=== PATIENT | female | born 1985 | race African-American/Black ===

== ENCOUNTER 2017-02-22 23:00 | Inpatient (IN) | payer OTHER ==
--- NOTE | ~2017-02-22 | DS ---
Unit #: [id number] #: [id number] Patient: DENNIS TEJADA [id number] [facility] [address] [place] [address] [id number] MR#: [id number] NAME: DENNIS TEJADA ROOM: [facility] Age: 32 Sex: F Admission Date: 02/23/2017 : 1985 Discharge Date: 02/24/2017 Attending Physician: Dylan Herrera M.D. Primary Care Physician: Primary Care Physician No DISCHARGE SUMMARY IDENTIFYING DATA Ms. Tejada is a 31-year-old female, who was brought to the hospital for depressive symptoms. DISCHARGE DIAGNOSES Psychiatric: Major depressive disorder, recurrent, moderate, without psychotic features. Medical: None. Stressors: Moderate psychosocial stressors. HISTORY OF PRESENT ILLNESS Please see initial psychiatric evaluation for details. PAST PSYCHIATRIC HISTORY Please see initial psychiatric evaluation for details. PAST MEDICAL HISTORY Please see initial psychiatric evaluation for details. HOSPITAL COURSE The patient was admitted to the adult psychiatric unit at [facility] meek Azul and was oriented to the hospital environment. Routine p.r.n. medications were initiated, and she was started back on her home medications and medications were adjusted and she was closely monitored. However, she ended up in the emergency room at [facility], where she was hospitalized and therefore was discharged from our care. DISCHARGE CONDITION Stable. PROGNOSIS Fair. Dictated by... Alice Kc/lizzy TD: 03/30/2017 13:51 JOB #: [id number] Unit #: [id number] #: [id number] Patient: DENNIS TEJADA DISCHARGE SUMMARY Page 1 of 1 X Dylan Herrera MD X DISCHARGE SUMMARY
--- NOTE | ~2017-02-22 | HP ---
Unit #: [id number] #: [id number] Patient: DENNIS MARTINEZ [id number] [place] [address] [id number] MR#: [id number] NAME: DENNIS MARTINEZ ROOM: P251 Age: 31 Sex: F Admission Date: 02/23/2017 : 1985 Attending Physician: Dylan Herrera M.D. Admitting Physician: Dylan Herrera M.D. Primary Care Physician: Primary Care Physician No HISTORY AND PHYSICAL HISTORY OF PRESENT ILLNESS Dennis is a 31 year old female admitted to [address] [place] [address] with depression verbalizing wanting to hurt herself. PAST MEDICAL HISTORY 1. Diabetes mellitus, insulin dependent. 2. Gastroparesis. 3. History of recurrent DVTs with PEs. PAST SURGICAL HISTORY Nothing reported. ALLERGIES Demerol, Reglan. SOCIAL HISTORY Smokes one-half pack per day. Denies alcohol and illicit drug use. FAMILY HISTORY Medically noncontributory. REVIEW OF SYSTEMS CONSTITUTIONAL: No fever or chills. HEENT: Denies any sore throat, ear pain or runny nose. CARDIOVASCULAR: Denies chest pain, irregular heart rhythm or palpitations. CHEST: Denies shortness of breath or cough. No hemoptysis. GASTROINTESTINAL: Denies nausea, vomiting, diarrhea or chronic constipation. ENDOCRINE: Denies history of increased thirst or urination. No recent significant weight loss or gain. GENITOURINARY: Denies dysuria, frequency, or hematuria. SKIN: Denies any rashes. HEMATOLOGIC: Denies history of increased bleeding or bruising. MUSCULOSKELETAL: Denies any hot, swollen joints. No generalized muscle pain. NEUROLOGIC: Denies problems with vision or speech. No frequent, severe headaches. No numbness, tingling or weakness in any extremities. Denies loss of bladder or bowel control. CURRENT MEDICATIONS 1. Detox protocol. 2. Eliquis 5 mg b.i.d. 3. Levemir 7 units b.i.d. Unit #: [id number] #: [id number] Patient: DENNIS MARTINEZ 4. Amitiza 24 mcg t.i.d. 5. NovoLog per sliding scale. PHYSICAL EXAMINATION GENERAL: Alert, well nourished. No apparent distress. VITAL SIGNS: Blood pressure 140/82, heart rate 80, respirations 16, and temperature 98.6. WEIGHT: 92 pounds. HEIGHT: 5 feet 2 inches. SKIN: Warm and dry without rash or lesion. HEENT: Normocephalic. TMs not viewed. Oral and nasal passages clear. Conjunctivae clear. PERRLA. EOMs intact. NECK: Supple without lymphadenopathy or thyromegaly. HEART: Regular rate and rhythm without murmur. LUNGS: Clear. ABDOMEN: Soft, nontender. : Not done. EXTREMITIES: No evidence of cyanosis, clubbing or edema. Moves all without focal deficit. NEUROLOGICAL: Unable to complete extended exam. She does move all extremities without focal deficit. Hand metallurgical lab technician is equal and gait is normal. IMPRESSION Psychiatric admission. RECOMMENDATIONS PSYCHIATRIC: Per psychiatrist. MEDICAL: I see no contraindications to participate in this facility's activities. MEDICAL PROGNOSIS Good. MEDICAL CONDITION Stable. Dictated by... Evita Burt P.A.-C. for Alice Reed/frantz TD: 02/24/2017 07:57 JOB #: [id number] HISTORY AND PHYSICAL Page 1 of 1 X Evita Burt HISTORY AND PHYSICAL
--- NOTE | ~2017-02-22 | PA ---
Unit #: [id number] #: [id number] Patient: DENNIS MARTINEZ [id number] [facility] [address] [place] [address] [id number] I MR#: [id number] NAME: DENNIS MARTINEZ ROOM: P251 Age: 31 Sex: F Admission Date: 02/23/2017 : 1985 Date of Assessment: 02/24/2017 Attending Physician: Dylan Herrera M.D. Admitting Physician: Dylan Herrera M.D. Primary Care Physician: Primary Care Physician No PSYCHIATRIC ASSESSMENT IDENTIFYING DATA The patient is a 31-year-old single, -Brazilian female, who is a resident of [place], [place], and was transferred to us from [facility]. CHIEF COMPLAINT "I tried to harm myself tonight, by running into traffic." HISTORY OF PRESENT ILLNESS The patient is a 31-year-old, -Brazilian female, who apparently came to [facility] due to vomiting and feeling nauseated and sweating and not getting any relief and reports she has gastroparesis and has been coming to the hospital repeatedly, however, has not been able to find relief and therefore she stated that she feels like this is not working out and that she tried to harm herself tonight by running into the oncoming traffic. So, she could get hit by the hospital security staff. The patient reports that she is tired and she cannot deal with it anymore and reports that she has never been treated this badly and feels like she is totally being ignored, due to try to kill herself and reports that she attempted suicide by trying to hang herself the last time she was at the emergency room, but her nurse stopped and reports that she is totally being ignored and that she has never been treated this badly. The nurse and staff reports that the patient has been to the ER three times this year for gastroparesis. While in the waiting room, the patient complaining of abdominal pain and stated that she was going to run into traffic if she is not going to get seen and security prevented patient from running into the street and stated that it has been difficult to get the patient any surgery to her wounds collapsing and is caused by uncontrollable diabetes along with the patient's gastroparesis. The patient told the nurse that the gastroparesis cannot be cured. She does not want to live and as such, she was seen to be significant threat to herself and recommendation for inpatient level of care for safety and stabilization was made and the patient was transferred to us. SUBSTANCE ABUSE HISTORY The patient reports history of experimentation with cannabis and abuse, but denies any current substance abuse issues. PAST PSYCHIATRIC HISTORY The patient has a history of outpatient psychiatric treatment at [facility] and review of the medical records indicate that she has been diagnosed and treated for mood disorder and currently she is not active in Unit #: [id number] #: [id number] Patient: DENNIS MARTINEZ any treatment program, is not seeing a psychiatrist, and is not taking any psychotropic medications. PAST MEDICAL HISTORY The patient's medical history is significant for diabetes mellitus and gastroparesis. ALLERGIES Demerol and Reglan. PERSONAL AND SOCIAL HISTORY A 31-year-old, -Brazilian female, who reports that she is single, unemployed, and lives by herself and has poor social support system. MENTAL STATUS EXAMINATION Young, -Brazilian female, who was casually dressed with fair personal hygiene, appears to be in no acute distress or discomfort. She was awake and alert on interaction with intact orientation to time, place, and person. Her mood was anxious and depressed with a congruent affect. His speech was slow and restricted in content. Her thought processes were disorganized with some looseness of associations and suicidal ideations. Her insight and judgment remain significantly impaired. DIAGNOSTIC IMPRESSION Psychiatric: Major depressive disorder, recurrent, moderate, without psychotic features. Medical: Gastroparesis and diabetes mellitus. Stressors: Moderate psychosocial stressors. TREATMENT PLAN 1. The patient has presented with a history of substance abuse and mood disorder, and has been decompensating and will need inpatient hospitalization for safety and stabilization. We will start her back on her home medications. We will adjust the medications and monitor response. 2. Supportive therapy was provided to the patient. 3. Safe, structured, and nourishing environment will be reported. ESTIMATED LENGTH OF STAY 4 to 5 days. ABILITY TO HELP SELF Limited. WILLINGNESS TO HELP SELF The patient appears to be willing to help self. STRENGTHS 1. Communicative. 2. Cooperative. PROBLEMS 1. Chronic dysphoric symptoms. 2. Poor social support system. DISCHARGE CRITERIA This will be contingent upon the patient's ability to show resolution of her depression and anxiety and her ability to stay safe to herself, particularly after discharge from the hospital. Unit #: [id number] #: [id number] Patient: DENNIS MARTINEZ Dictated by... Alice Kc/monicol TD: 02/24/2017 12:50 JOB #: [id number] PSYCHIATRIC ASSESSMENT Page 1 of 1 X Dylan Herrera MD X PSYCHIATRIC ASSESSMENT
--- NOTE | ~2017-02-22 | PN ---
Unit #: [id number] #: [id number] Patient: DENNIS TEJADA [id number] [facility] [address] [place] [address] [id number] I MR#: [id number] NAME: DENNIS TEJADA ROOM: P251 Age: 31 Sex: F Admission Date: 02/23/2017 : 1985 Attending Physician: Dylan Herrera M.D. Admitting Physician: Dylan Herrera M.D. Primary Care Physician: Primary Care Physician Baylee NUNO NOTES DATE 02/24/2017 DISCUSSION Ms. Tejada is a 31-year-old female who has been active under my care and apparently is having significant complications medically and was seen in consultation and due to her elevate blood sugars and history of diabetes dehydration, recommendation was made for the patient to be sent out to emergency room for medical clearance and was cleared and resume psychiatric treatment. Dictated by... Alice Kc/freddy TD: 02/25/2017 02:27 JOB #: [id number] YOLANDA NUNO NOTES Page 1 of 1 X Dylan Herrera MD PROGRESS NOTE
[2017-02-24] MEDS ORDERED: AMITIZA24 MCG PO (05:53)
[2017-02-24] MEDS ORDERED: ELIQUIS5 MG PO (05:53)
[2017-02-24] MEDS ORDERED: LEVEMIR SUBQ (05:54)
[2017-02-24] MEDS ORDERED: ZOFRAN ODT4 M1 PO (05:54)
[2017-02-24] MEDS ORDERED: HUMALOG100 UNIT/2 (05:54)
[2017-02-24] MEDS ORDERED: PHENERGAN PO (05:55)
[2017-02-24 09:42] LABS: URINE APPEARANCE CLEAR; URINE BILIRUBIN NEG (NEG); URINE BLOOD 1+ (NEG); URINE COLOR YELLOW; URINE GLUCOSE >1000 MG/DL (NEG); URINE KETONE 3+ (NEG); URINE LEUKOCYTE ESTERASE NEG (NEG); URINE NITRATE NEG (NEG); URINE PH 5.5 (5-8); URINE PROTEIN 2+ (NEG); URINE SPECIFIC GRAVITY 1.038 (1.003-1.035); URINE UROBILINOGEN 0.2 MG/DL (NEG)
[2017-02-24 09:45] LABS: URINE BACTERIA AUWI NEG (NEGATIVE); URINE SQUAMOUS EPITHELIAL CELL NONE SEEN /[HPF]; UWBCS1 AUWI 0-2 (0-5)
[2017-02-24 10:25] LABS: AMPHETAMINE NEG (NEG); BARBITURATES NEG (NEG); BENZODIAZEPINES NEG (NEG); COCAINE NEG (NEG); MARIJUANA POS (NEG); OPIATES NEG (NEG); TRICYCLIC ANTIDEPRESSANTS NEG (NEG); U METHADONE NEG (NEG)
== END 2017-02-24 09:50 | DRG 885 ==
LOC: P2L 02-23 05:53
PROVIDERS: Psychiatry & Neurology Psychiatry
DX: F33.1 Major depressive disorder, recurrent, moderate (principal); K31.84 Gastroparesis; E11.9 Type 2 diabetes mellitus without complications; F17.210 Nicotine dependence, cigarettes, uncomplicated
CPT/HCPCS: 80307; 81003; 82947; J2550

== ENCOUNTER 2017-02-24 05:37 | Inpatient (IN) | payer OTHER ==
--- NOTE | ~2017-02-24 | EKG ---
PATIENT: DENNIS MARTINEZ UNIT #: [id number] Ventricular Rate: 110 BPM Atrial Rate: 110 BPM P-R Interval: 124 ms QRS Duration: 82 ms Q-T Interval: 382 ms QTC Calculation(Bezet): 516 ms P Mercedita: 82 degrees Calculated R Mercedita: -48 degrees Calculated T Mercedita: 89 degrees Diagnosis Line: Sinus tachycardia Diagnosis Line: Right atrial enlargement Diagnosis Line: Left anterior fascicular block Diagnosis Line: Nonspecific T wave abnormality Diagnosis Line: Abnormal ECG Diagnosis Line: No previous ECGs available Diagnosis Line: Confirmed by VICTOR HUGO NIX MD ([id number]) on Diagnosis Line: 02/25/2017 7:21:44 AM INTERPRETING MD: TRISTIN
--- NOTE | ~2017-02-24 | CR72 ---
[facility] A Service of [facility] & [facility] RADIOLOGY TEXT RESULTS PATIENT: DENNIS MARTINEZ LOCATION: [place] [address] : [birth year] UNIT #: [id number] AGE: [address]: Krysten Whitehead MD SEX: F ORDER DR: [id number] [facility] [address] [place], [place] [address] [id number] MR#: [id number] Acc #: [id number] NAME: DENNIS MARTINEZ : 1985 SEX: F STUDY DATE/TIME: 02/24/2017 7:24 UNIT: KENNY ROOM: STUDY DESCRIPTION: CR Chest Single View Portable Attending Physician: Dharmesh Brian M.D. Ordering Physician: Dharmesh Brian M.D. Primary Care Physician: Primary Care Physician No MEDICAL IMAGING REPORT This report is preliminary unless electronic signature is present EXAM Portable chest HISTORY Weakness, nausea and vomiting for 4 days. FINDINGS AP portable view is obtained. Cardiovascular configuration is normal and the lungs are clear. CONCLUSION Negative portable chest. Dictated by... Rafael White M.D. THIS IS AN ELECTRONICALLY VERIFIED REPORT Rafael White M.D. at 02/25/2017 3:21 PM Jomar TD: 02/24/2017 10:01 JOB #: [id number] MEDICAL IMAGING REPORT Page 1 of 1 COPY
--- NOTE | ~2017-02-24 | DS ---
Unit #: [id number] #: [id number] Patient: DENNIS MARTINEZ [id number] [facility] [address] [place], [place] [address] [id number] I MR#: [id number] NAME: DENNIS MARTINEZ ROOM: 237 Age: 31 Sex: F Admission Date: 02/24/2017 : 1985 Discharge Date: 02/26/2017 Attending Physician: Krysten Whitehead M.D. Primary Care Physician: No Primary Care Physician DISCHARGE SUMMARY PLACE OF DISCHARGE [facility]. REASON FOR TRANSFER Longstanding history of gastroparesis. HISTORY OF PRESENT ILLNESS/HOSPITAL COURSE The patient is a 31-year-old female, longstanding patient of Dr. Urias, who presented to [facility] originally secondary to acute suicidal ideation. She stated that she had thoughts of running into traffic; therefore, she was admitted originally at [facility]. Initial laboratory studies raised the possibility of anion gap metabolic acidosis, as well as elevated blood sugar. Thus, she was transferred to [facility] for evaluation. While here she was noted to be in acute DKA. She was placed on DKA protocol, ICU. Her insulin drip was gradually discontinued. She was maintained on sliding scale afterward. She does have a prior history of protein S deficiency, chronic anticoagulation. Both issues remained stable while here. At this point in time, medically she is stable. However, she is unable to tolerate diet. She states that she has a longstanding history of gastroparesis and is requesting evaluation by Dr. Urias. Therefore, we will transfer the patient to [facility] under [facility] service with consultation being placed to Dr. Urias. I have reviewed the case with him, and he states that he will see the patient at [facility]. Prior to transfer case will be reviewed with Dr. Rodriguez in detail for medical stabilization and/or psychiatric stabilization. CURRENT CLINICAL DIAGNOSES 1. Gastroparesis. 2. Suicidal ideation. 3. Protein S deficiency. 4. Chronic anticoagulation. 5. Diabetic ketoacidosis, now resolved. 6. Insulin-dependent diabetes. Dictated by... Krysten Whitehead M.D. Unit #: [id number] #: [id number] Patient: DENNIS MARTINEZ JOE/lilian TD: 02/27/2017 15:19 JOB #: [id number] DISCHARGE SUMMARY Page 1 of 1 X Krysten Whitehead MD X DISCHARGE SUMMARY
--- NOTE | ~2017-02-24 | HP ---
Unit #: [id number] #: [id number] Patient: DENNIS MARTINEZ [id number] [address] [address] [id number] I MR#: [id number] NAME: DENNIS MARTINEZ ROOM: 49561 Age: 31 Sex: F Admission Date: 02/24/2017 : 1985 Attending Physician: Faith Diaz M.D. Primary Care Physician: No Primary Care Physician HISTORY AND PHYSICAL CHIEF COMPLAINT From [facility], abdominal pain, vomiting. HISTORY OF PRESENT ILLNESS The patient is a 31-year-old female with past medical history of diabetes, gastroparesis, protein S deficiency and chronic anticoagulation who presented to the emergency department from [facility] for evaluation of the above. The patient states that she has not been feeling well since February 21, 2017. She reports more than 10 bouts of emesis within the past 24 hours. She states that her last bowel movement was on the . She has abdominal pain that is "everywhere." She describes it as "crampy." There are no exacerbating or alleviating factors. She denies any fever or chills. No cough or cold symptoms. No chest pain. She states that she has been taking her insulin as prescribed. She is on Levemir 10 units daily, as well as NovoLog 3 units before meals and sliding scale. Her last dose of insulin was yesterday. She presented to [facility] yesterday for suicidal ideations. In the emergency department, the patient was given 2 liters of normal saline, as well as 4 mg of Zofran and 4 mg of morphine. Laboratory notable for beta hydroxybutyrate of 7.87. Glucose is 336. Anion gap is 20. CO2 is 17. She is being admitted to [facility] for evaluation and further treatment. PAST MEDICAL HISTORY 1. Admission to [facility] within the past year for DKA. 2. Diabetes, diagnosed in 2012, followed by (1) . 3. Protein S deficiency with history of PE and DVT, followed by Dr. Schwartz, maintained on chronic anticoagulation with Eliquis. 4. Gastroparesis status post gastric stimulator. SOCIAL HISTORY The patient is currently living with friends. She states that she lost her home. She also lost custody of her 5 children that range in ages from 7 to 18. Her is currently in assisted. She denies alcohol use. She reports occasional marijuana use. She smokes about 7 cigarettes daily. FAMILY HISTORY Notable for her mother having diabetes. Her paternal grandfather had colon cancer. ALLERGIES Unit #: [id number] #: [id number] Patient: DENNIS MARTINEZ Meperidine, metoclopramide. HOME MEDICATIONS 1. Amitiza 24 mcg b.i.d. 2. Eliquis 5 mg b.i.d. 3. Levemir listed as 7 units b.i.d., but the patient told me she takes 10 units once daily. 4. Zofran 4 mg q.4 hours. 5. Humalog sliding scale. 6. Phenergan 25 mg q.6 hours p.r.n. REVIEW OF SYSTEMS A complete review of systems is negative except as indicated in the HPI. The patient states that her weight has been "up and down." PHYSICAL EXAMINATION VITAL SIGNS: Temperature is 97.6, pulse 104, respirations 18, blood pressure 138/98, oxygen saturation 100% on room air. GENERAL: The patient is an female who is awake and alert, in no acute distress. HEENT: The head is atraumatic. Mucous membranes are dry. NECK: Supple. Trachea is midline. CARDIOVASCULAR: Tachycardic in the one-teens. RESPIRATORY: Lungs are clear to auscultation bilaterally with no increased work of breathing. ABDOMEN: Soft. She is mildly tender to palpation throughout. There is a palpable gastric stimulator battery in the right abdomen. Bowel sounds are present in all 4 quadrants. EXTREMITIES: Extremities are nontender with no pedal edema. NEUROLOGIC: The patient is awake and alert. She follows commands. PSYCHIATRIC: The patient is quite tearful. She states, "I can't take it anymore." She is cooperative. SKIN: Skin of examined areas is warm and dry. DIAGNOSTIC TESTS CARDIOVASCULAR: EKG showed sinus tachycardia with a rate of 110 beats per minute. LABORATORY: Comprehensive metabolic panel notable for potassium of 3.4, CO2 of 17. Anion gap is 20, glucose 336. Amylase and lipase are normal. Troponin is less than 0.05. Beta hydroxybutyrate is 7.87. Urinalysis notable for 3+ ketones, 5-10 red blood cells. Urine tox screen is positive for marijuana. HCG negative. IMAGING: Chest x-ray is negative. ASSESSMENT 1. The patient is a 31-year-old female with DKA. The patient received 2 liters of normal saline in the emergency department. 2. Anion gap metabolic acidosis with an anion gap of 20. 3. Hypokalemia. 4. Nausea and vomiting. 5. History of gastroparesis. 6. History of protein S deficiency. The patient has had PE, as well as DVT. She is followed by Dr. Schwartz. 7. Chronic anticoagulation with Eliquis. 8. Suicidal ideation. 9. Tobacco abuse. Unit #: [id number] #: [id number] Patient: DENNIS MARTINEZ PLAN 1. Admit to ICU. 2. DKA protocol with insulin drip. 3. Check magnesium level. 4. Potassium/magnesium protocol. 5. Zofran p.r.n. 6. Seventy-hour hold. 7. Sitter. 8. Consult Dr. Rodriguez. 9. Repeat labs in the morning including magnesium and phosphorous levels, as well as repeat labs per DKA protocol. 10. Protonix for GI prophylaxis since the patient will be in the ICU. NOTE: Thirty minutes critical care time spent in the care of this patient (11 a.m. to 11:30 a.m.). Dictated by Alice Levi/lilian TD: 02/24/2017 12:23 JOB #: [id number] HISTORY AND PHYSICAL Page 1 of 1 X Faith Diaz MD HISTORY AND PHYSICAL
--- NOTE | ~2017-02-24 | DS ---
Unit #: [id number] #: [id number] Patient: DENNIS MARTINEZ [id number] [place] [address] [place], [place] [address] [id number] I MR#: [id number] NAME: DENNIS MARTINEZ ROOM: 237 Age: 31 Sex: F Admission Date: 02/24/2017 : 1985 Discharge Date: 02/26/2017 Attending Physician: Krysten Whitehead M.D. Primary Care Physician: No Primary Care Physician DISCHARGE SUMMARY ADDENDUM Please see "above" discharge summary for hospital details. During time of discussion with both Dr. Rodriguez, as well as Dr. Zarate, at [facility], it was learned the patient is a fairly frequent flyer with numerous hospital admissions and drug-seeking/narcotic seeking behavior while at [facility]. With her being acutely suicidal, decision has been made for the patient to be transferred to [facility] first for psychiatric stabilization and then further medical necessity may dictate that she would require acute inpatient admission under Dr. Urias's service. However, it should be noted that the patient does have a longstanding history of narcotic-seeking behavior, and she did not receive while she was here at [facility]. Therefore, transfer will be made to [facility] for ongoing care, suicidal ideation. DISCHARGE MEDICATIONS 1. Reglan 10 mg p.o. q.a.c. 2. Protonix 40 mg p.o. daily. 3. Amitiza 24 mcg p.o. b.i.d. 4. Eliquis 5 mg p.o. b.i.d. 5. Levemir 10 units subcu q.h.s. 6. NovoLog 5 units t.i.d. with meals. (Hold if the patient not eating.) DISCHARGE DISPOSITION [facility]. Dictated by... Alice Reed/lilian TD: 02/27/2017 15:45 JOB #: [id number] Unit #: [id number] #: [id number] Patient: DENNIS MARTINEZ DISCHARGE SUMMARY Page 1 of 1 X Krysten Whitehead MD DISCHARGE SUMMARY
--- NOTE | ~2017-02-24 | A ---
[facility] DATE: 02/24/17 Patient: DENNIS MARTINEZ Physician: CHRISSY Address: 2010 [facility] Room/Bed: [address], Zip: [place] [address] Admit Date: 02/24/17 Date of : [birth year] Height: 5 2 Weight: 91 41.5 NUTRITIONAL ASSESSMENT: REASON: Consult re: DM education, low BMI Dx: 31 y/o female admitted for DKA PMH: T2DM (Dx 2012), gastroparesis, protein S deficiency, smoker, suicidal tendencies Anthropometrics: ht: 5'2" wt: 92# (41.8 kg) BMI: 16 Labs: K+ 3.4, Glu 336, Lip 14 Meds: NaCl, novolin, phenergan, amitiza, zofran, mag-sulfate, protonix IV, D5% I/O & Bowel function: unavailable. Last BM 02/22. Abdominal pain and nausea Skin Integrity: WNL, no edema Assessment: Chart reviewed, events noted. Seeing pt for consult re: DM education. PT admitted a few hours ago. Upon review of chart, the pt also has a low BMI. RD record label internship provided written and verbal diabetes diet education. The pt reports having a low-income and no oven or stove-top, so all of her meals are inexpensive, processed foods. She does have a microwave. RD record label internship provided examples of easy, in expensive low-carb foods. The pt is currently on a clear liquid diet and on an insulin drip. The pt also has gastroparesis and follows a low-residue diet, which she stated makes following a diabetic diet even harder for her, as she cannot have whole grains. RD record label internship will follow up tomorrow to provide written education on inexpensive diabetic foods and gastroparesis diet education. If diet advances, RD record label internship will offer supplements. RD to continue to follow. Dx: 1)Impaired glucose utilization r/t lifestyle, poor DM management AEB DKA, blood glucose level 336. 2) Underweight r/t lifestyle, nausea/vomiting AEB BMI of 16 Intervention: 1. diet education 2. Clear liquid diet (diabetic) 3. supplements when diet advances Monitoring, Evaluation and Goals: 1. Improve labs; monitor glucose, obtain new A1c 2. Weight; prevent unintentional weight loss, promote gradual weight gain towards healthy BMI 3. Oral intake; once diet advances, tolerate >50% of meals/supplements [facility] DATE: 02/24/17 Patient: DENNIS MARTINEZ Physician: CHRISSY Address: 2010 [facility] Room/Bed: [address], Zip: [place] [address] Admit Date: 02/24/17 Date of : [birth year] Height: 5 2 Weight: 91 41.5 4. GI; promote regular GI function Recommendations: 1. Once medically feasible and diet advances to full liquid, order Glucerna TID. 2. Once diet advances to solid foods, recommend consistent carbohydrate + low-residue + 6 small meals. 3. Monitor glucose levels and obtain new A1c RD will f/u per protocol as pt is at moderate nutritional risk. Respectfully, WARD RAJAN, manager internal Leeann Jimenez, RD, LD [facility] cc: client file
[2017-02-24] MEDS ORDERED: ELIQUIS5 MG PO (05:53)
[2017-02-24] MEDS ORDERED: AMITIZA24 MCG PO (05:53)
[2017-02-24] MEDS ORDERED: LEVEMIR SUBQ (05:54)
[2017-02-24] MEDS ORDERED: ZOFRAN ODT4 M1 PO (05:54)
[2017-02-24] MEDS ORDERED: HUMALOG100 UNIT/2 (05:54)
[2017-02-24] MEDS ORDERED: PHENERGAN PO (05:55)
[2017-02-24 07:50] LABS: URINE SOURCE CLEAN CATCH
[2017-02-24 07:56] LABS: URINE APPEARANCE CLEAR; URINE BILIRUBIN NEG (NEG); URINE BLOOD 3+ (NEG); URINE COLOR YELLOW; URINE GLUCOSE >1000 MG/DL (NEG); URINE KETONE 3+ (NEG); URINE LEUKOCYTE ESTERASE NEG (NEG); URINE NITRATE NEG (NEG); URINE PROTEIN 2+ (NEG); URINE SPECIFIC GRAVITY 1.037 (1.003-1.035); URINE UROBILINOGEN 0.2 MG/DL (NEG)
[2017-02-24 07:59] LABS: URBCS1 AUWI INNUM /[HPF] (0-2); URINE BACTERIA AUWI NEG (NEGATIVE); URINE SQUAMOUS EPITHELIAL CELL NONE SEEN /[HPF]; UWBCS1 AUWI 0-2 (0-5)
[2017-02-24 08:00] LABS: CULTURE INDICATED? NO
[2017-02-24 08:23] LABS: HEMATOCRIT 37.7 % (35.0-45.0); HEMOGLOBIN 11.7 gm/dL (12.0-16.0); MEAN CELL VOLUME 75.9 FL (83-96); MEAN CORPUSCULAR HEMOGLOBIN 23.5 PG (28-34); MEAN PLATELET VOLUME 7.9 FL (6.5-11.5); NEUTROPHIL% 77.2 % (40-75); PLATELET COUNT 333 X10e3 (140-420); RED BLOOD COUNT 4.98 X10e (3.90-5.30); RED CELL DISTRIBUTION WIDTH 16.5 % (11.0-15.5); WHITE BLOOD COUNT 6.7 X10e3 (4.0-10.5)
[2017-02-24 08:24] LABS: BASOPHIL# 0.2 X10e3 (0-0.3); BASOPHIL% 2.9 % (0-2.5); DIFF IND NO; LYMPHOCYTE# 0.9 X10e3 (1.0-3.5); LYMPHOCYTE% 13.1 % (17.0-45.0); MONOCYTE# 0.5 X10e3 (0-1.0); MONOCYTE% 6.8 % (3.0-12.0); NEUTROPHIL# 5.2 X10e3 (1.5-7.1)
[2017-02-24 08:38] LABS: POC - CKMB <1.0 ng/mL (0.0-7.9); POC - TROPONIN <0.05 ng/mL (<=0.05)
[2017-02-24 08:54] LABS: ALBUMIN SERUM 4.4 g/dL (3.5-5.0); ALKALINE PHOSPHATASE 60 U/L (32-92); ALT (SGPT) 17 U/L (10-40); AMYLASE 16 U/L (0-46); AST (SGOT) 16 U/L (10-42); BILIRUBIN, DIRECT <0.1 mg/dL (0.0-0.2); BILIRUBIN,INDIRECT 1.7 mg/dL (0.0-0.9); BILIRUBIN,TOTAL 1.8 mg/dL (0.2-2.0); BLOOD UREA NITROGEN 19 mg/dL (9-23); BUN/CREATININE RATIO 31.66; CALCIUM SERUM 9.1 mg/dL (8.4-10.2); CARBON DIOXIDE 17 mmol/L (22-31); CHLORIDE 100 mmol/L (100-111); CREATININE SERUM 0.6 mg/dL (0.6-1.4); GLOM FILT RATE Estimated 139.8 mL/min (>60); GLUCOSE FASTING 336 mg/dL (70-110); LIPASE 14 U/L (22-51); POTASSIUM 3.4 mmol/L (3.5-5.1); PROTEIN TOTAL SERUM 8.2 g/dL (6.0-8.3); SODIUM 137 mmol/L (135-145)
[2017-02-24 22:52] LABS: CALCIUM SERUM 9.2 mg/dL (8.4-10.2); CREATININE SERUM 0.7 mg/dL (0.6-1.4); GLOM FILT RATE Estimated 132.9 mL/min (>60); PHOSPHOROUS 1.3 mg/dL (2.5-4.6)
[2017-02-24 22:54] LABS: POTASSIUM 2.8 mmol/L (3.5-5.1)
[2017-02-24 23:27] LABS: %MB 1.4 % (0.0-4.0); MB 1.5 ng/ml
[2017-02-25 10:38] LABS: BASOPHIL% 0.5 % (0-2.5); EOSINOPHIL% 0.3 % (0.0-7.0); HEMATOCRIT 33.8 % (35.0-45.0); HEMOGLOBIN 10.8 gm/dL (12.0-16.0); LYMPHOCYTE# 1.1 X10e3 (1.0-3.5); LYMPHOCYTE% 22.4 % (17.0-45.0); MEAN CELL VOLUME 75.8 FL (83-96); MEAN CORPUSCULAR HEMOGLOBIN 24.2 PG (28-34); MEAN CORPUSCULAR HGB CONC 31.9 g/dL (30-36); MEAN PLATELET VOLUME 7.9 FL (6.5-11.5); MONOCYTE# 0.4 X10e3 (0-1.0); MONOCYTE% 7.8 % (3.0-12.0); NEUTROPHIL# 3.4 X10e3 (1.5-7.1); PLATELET COUNT 273 X10e3 (140-420); RED BLOOD COUNT 4.46 X10e (3.90-5.30); RED CELL DISTRIBUTION WIDTH 16.6 % (11.0-15.5)
[2017-02-25 10:41] LABS: DIFF IND NO
[2017-02-25 11:07] LABS: ALBUMIN SERUM 3.6 g/dL (3.5-5.0); BILIRUBIN,TOTAL 0.9 mg/dL (0.2-2.0); BUN/CREATININE RATIO 17.14; CALCIUM SERUM 8.7 mg/dL (8.4-10.2); CREATININE SERUM 0.7 mg/dL (0.6-1.4); GLOM FILT RATE Estimated 132.9 mL/min (>60); MAGNESIUM 1.8 mg/dL (1.6-3.0); PHOSPHOROUS 1.7 mg/dL (2.5-4.6); POTASSIUM 3.6 mmol/L (3.5-5.1); PROTEIN TOTAL SERUM 6.5 g/dL (6.0-8.3)
[2017-02-26 06:44] LABS: BASOPHIL% 0.8 % (0-2.5); DIFF IND YES; EOSINOPHIL% 0.5 % (0.0-7.0); HEMATOCRIT 32.5 % (35.0-45.0); LYMPHOCYTE# 1.1 X10e3 (1.0-3.5); MEAN CORPUSCULAR HEMOGLOBIN 23.6 PG (28-34); MEAN CORPUSCULAR HGB CONC 30.7 g/dL (30-36); MEAN PLATELET VOLUME 8.2 FL (6.5-11.5); MONOCYTE# 0.3 X10e3 (0-1.0); MONOCYTE% 10.5 % (3.0-12.0); NEUTROPHIL# 1.4 X10e3 (1.5-7.1); NEUTROPHIL% 49.2 % (40-75); PLATELET COUNT 259 X10e3 (140-420); RED BLOOD COUNT 4.21 X10e (3.90-5.30); RED CELL DISTRIBUTION WIDTH 16.3 % (11.0-15.5); WHITE BLOOD COUNT 2.8 X10e3 (4.0-10.5)
[2017-02-26 07:08] LABS: BUN/CREATININE RATIO 14.28; CALCIUM SERUM 8.5 mg/dL (8.4-10.2); CREATININE SERUM 0.7 mg/dL (0.6-1.4); GLOM FILT RATE Estimated 132.9 mL/min (>60); POTASSIUM 3.5 mmol/L (3.5-5.1)
[2017-02-26 07:36] LABS: ANISOCYTOSIS SL; PLATELET ESTIMATE NORMAL (NORMAL)
[2017-02-26 07:37] LABS: HYPOCHROMIA SL; MICROCYTOSIS SL
== END 2017-02-26 19:15 | DRG 637 ==
LOC: CED 05:37 → CEDOF 10:20 → C2A 10:20 → CED 10:51 → CEDOF 10:51 → CICCU2 12:40 → CEDOF 12:40 → CICCU2 02-25 07:44 → C2A 02-25 11:30
PROVIDERS: Emergency Medicine; Family Medicine
PROC: 05H633Z Insertion of Infusion Device into Left Subclavian Vein, Percutaneous Approach (ICD-10-PCS; principal; 2017-02-24)
PROC: B547ZZA Ultrasonography of Left Subclavian Vein, Guidance (ICD-10-PCS; 2017-02-24)
DX: E13.10 Other specified diabetes mellitus with ketoacidosis without coma (principal); E43 Unspecified severe protein-calorie malnutrition; D68.59 Other primary thrombophilia; K31.84 Gastroparesis; R45.851 Suicidal ideations; Z68.1 Body mass index [BMI] 19.9 or less, adult; Z79.4 Long term (current) use of insulin; E11.43 Type 2 diabetes mellitus with diabetic autonomic (poly)neuropathy; Z79.01 Long term (current) use of anticoagulants; Z86.711 Personal history of pulmonary embolism; Z86.718 Personal history of other venous thrombosis and embolism; E87.6 Hypokalemia; F17.210 Nicotine dependence, cigarettes, uncomplicated
CPT/HCPCS: 36415; 71010; 80048; 80053; 80076; 81003; 82010; 82150; 82550; 82553; 82947; 83036; 83690; 83735; 84100; 84484; 84703; 85025; 87040; 93005; 96374; 96375; 96376; 99284; J1815; J1885; J2270; J2405; J2550; J2997; J3475

== ENCOUNTER 2017-02-26 08:00 | Inpatient (IN) | payer OTHER ==
--- NOTE | ~2017-02-26 | PA ---
Unit #: [id number] #: [id number] Patient: DENNIS TEJADA [id number] [facility] [address] [place] [address] [id number] I MR#: [id number] NAME: DENNIS TEJADA ROOM: P262 Age: 31 Sex: F Admission Date: 02/26/2017 : 1985 Date of Assessment: Attending Physician: Dylan Herrera M.D. Admitting Physician: Dylan Herrera M.D. Primary Care Physician: Primary Care Physician No PSYCHIATRIC ASSESSMENT DATE OF SERVICE 02/26/2017. IDENTIFYING DATA Ms. Tejada is a 31-year-old single female, who is a resident of [place], [place], and was transferred to us from [facility]. CHIEF COMPLAINT "I've been having suicidal thoughts." HISTORY OF PRESENT ILLNESS Ms. Tejada is a 31-year-old female, who was recently brought [facility] [place] [facility] last week as a transfer from the emergency room with suicidal intent and plan. However, soon afterwards, she was seen to be once again having medical complications and was seen to be in diabetic ketoacidosis and was seen in medical consultation and was transferred back to [facility], where she was medically cleared and kept for a few days and was then transferred back to us as the patient once again was seen to be reporting suicidal thoughts. She reports that she came to the hospital due to vomiting and feeling nauseated and not getting any relief and feeling like this for a few days and that she tried to harm herself by running into traffic and the hospital security had to stop her; however, she was under the care of Dr. Aguiar at [facility]. The patient reports that she wanted Dilaudid or morphine and was refused narcotic pain medications as it appears that has been the main motivation for her to repeatedly come into the emergency room and when told that she is not going to get those, she has made comments about wanting to kill herself. The patient reported to Dr. Aguiar that she was going to leave hospital and run into traffic and thus medicines were given and was placed on 72 hours hold, and [facility], as well as [facility]. [facility] report that the patient is combative if not given narcotic pain medications and the patient's pain level has been manageable with nonnarcotic pain medication and the patient refuses to eat unless she is given narcotics, but now that she is here, she once again is trying to manipulate the system stating that she does not feel like she needs to be here and that she just needs to go to her regular doctor, so she can get her pain medications and it appears that she has been obsessed about the narcotics and has been repeatedly going to the hospital and getting agitated and aggressive and then threatening suicide if she does not get pain medications. Unit #: [id number] #: [id number] Patient: DENNIS TEJADA SUBSTANCE ABUSE HISTORY The patient has a history of cannabis and opioid dependence. PAST PSYCHIATRIC HISTORY The patient has had a history of inpatient psychiatric hospitalization at [facility], and review of the medical records indicate that currently she is not active in any ongoing outpatient psychiatric treatment. PAST MEDICAL HISTORY The patient's medical history is significant for diabetes mellitus and gastroparesis. ALLERGIES Demerol and Reglan. PERSONAL AND SOCIAL HISTORY A 31-year-old female, who reports that she is single, unemployed, and lives alone and has poor social support system. MENTAL STATUS EXAMINATION Young female, who was casually dressed with fair personal hygiene, appears to be in no acute distress or discomfort. She was awake and alert on interaction with intact orientation to time, place, and person. Her mood was anxious and depressed with a congruent affect. Her speech was slow and restricted in content. Her thought processes were disorganized with some looseness of associations and suicidal ideations. Her insight and judgment remain significantly impaired. DIAGNOSTIC IMPRESSION Psychiatric: Major depressive disorder, recurrent, moderate, without psychotic features. Medical: Diabetes mellitus and gastroparesis. Stressors: Moderate psychosocial stressors. TREATMENT PLAN 1. The patient has presented with a history of mood disorder and substance abuse and has been decompensating and will need inpatient hospitalization for safety and stabilization. We will start her back on her home medications. We will adjust the medications and monitor response. 2. Supportive therapy was provided to the patient. 3. Safe, structured, and nourishing environment will be provided. ESTIMATED LENGTH OF STAY 5 to 7 days. ABILITY TO HELP SELF Limited. WILLINGNESS TO HELP SELF The patient appears to be willing to help self. STRENGTHS 1. Communicative. 2. Cooperative. PROBLEMS 1. Chronic dysphoric symptoms. 2. Chronic chemical dependency. Unit #: [id number] #: [id number] Patient: DENNIS TEJADA 3. Poor social support system. DISCHARGE CRITERIA This will be contingent upon the patient's ability to show resolution of her depression and anxiety and her ability to stay safe to herself, particularly after discharge from the hospital. Dictated by... Dylan Herrera M.D. BESSY/lizzy TD: 02/27/2017 19:35 JOB #: [id number] PSYCHIATRIC ASSESSMENT Page 1 of 1 X Dylan Herrera MD X PSYCHIATRIC ASSESSMENT
--- NOTE | ~2017-02-26 | CR7 ---
[facility] A Service of [facility] RADIOLOGY TEXT RESULTS PATIENT: DENNIS MARTINEZ LOCATION: P2 P262-1 : [birth year] UNIT #: [id number] AGE: [address]: Dylan Herrera MD SEX: F ORDER DR: [id number] [facility] [address] [facility]. [place], [place] [address] [id number] I MR#: [id number] Acc #: [id number] NAME: DENNIS MARTINEZ : 1985 SEX: F STUDY DATE/TIME: 02/28/2017 12:19 UNIT: P2 ROOM: [facility] STUDY DESCRIPTION: CR Abdomen Single AP View Attending Physician: Dylan Herrera M.D. Ordering Physician: Krysten Whitehead M.D. Primary Care Physician: Primary Care Physician No MEDICAL IMAGING REPORT This report is preliminary unless electronic signature is present EXAM Abdomen single view, 02/28/2017 HISTORY Vomiting with no bowel movement for 1 week, generalized abdominal pain and decreased bowel sounds today. Poor skin turgor. Patient refusing to eat. FINDINGS Single radiograph of the abdomen shows normal bowel gas pattern with no evidence of bowel obstruction or free air. There are no abnormal abdominal calcifications. Calcifications in the pelvis are suggestive of phleboliths. Gastric stimulator leads left upper quadrant. IMPRESSION Negative abdomen. Dictated by... Francisco Whitten M.D. THIS IS AN ELECTRONICALLY VERIFIED REPORT Francisco Whitten M.D. at 03/01/2017 8:08 AM OKSANA/steffanie TD: 02/28/2017 13:02 JOB #: [id number] MEDICAL IMAGING REPORT Page 1 of 1 COPY
--- NOTE | ~2017-02-26 | DS ---
Unit #: [id number] #: [id number] Patient: DENNIS TEJADA [id number] [facility] [address] [place] [address] [id number] MR#: [id number] NAME: DENNIS TEJADA ROOM: [facility] Age: 32 Sex: F Admission Date: 02/26/2017 : 1985 Discharge Date: 02/28/2017 Attending Physician: Dylan Herrera M.D. DISCHARGE SUMMARY IDENTIFYING DATA Ms. Tejada is a 32-year-old female who is a resident of [place], [place] and was self-referred to the hospital. DISCHARGE DIAGNOSES Psychiatric: Major depressive disorder, recurrent, moderate, without psychotic features. Medical: Diabetes mellitus. Stressors: Moderate psychosocial stressors. HISTORY OF PRESENT ILLNESS Please see initial psychiatric evaluation for details. PAST PSYCHIATRIC HISTORY Please see initial psychiatric evaluation for details. PAST MEDICAL HISTORY Please see initial psychiatric evaluation for details. HOSPITAL COURSE The patient was admitted to the adult psychiatric unit at [facility] and was oriented to the hospital environment. Routine p.r.n. medications were initiated, and she was started back on her home medications and Remeron was started as an antidepressant. Medical consultation was requested for diabetes; however, she was seen to be decompensating and was exhibiting some medical problems and sent out to the emergency room and did end up being hospitalized at [facility] and therefore was discharged from our care. DISCHARGE CONDITION Stable. PROGNOSIS Guarded. Dictated by... Alice Kc/lizzy TD: 03/31/2017 14:02 JOB #: [id number] Unit #: [id number] #: [id number] Patient: DENNIS TEJADA DISCHARGE SUMMARY Page 1 of 1 X Dylan Herrera MD X DISCHARGE SUMMARY
--- NOTE | ~2017-02-26 | CO ---
Unit #: [id number] #: [id number] Patient: DENNIS MARTINEZ [id number] [place] [address] [id number] I MR#: [id number] NAME: DENNIS MARTINEZ ROOM: [facility] Age: 31 Sex: F Admission Date: 02/26/2017 : 1985 Attending Physician: Dylan Herrera M.D. Primary Care Physician: Primary Care Physician No Consultation Date: 02/23/2017 CONSULTATION REPORT JUAN JOSÉ Hassan is a 31-year-old with history of insulin-dependent diabetes mellitus and recurrent DVTs with PEs. She is maintained on Levemir 10 units q.h.s. and Eliquis 5 mg b.i.d. PLAN Plan will be to continue both of these medications. Monitor Accu-Cheks a.c. and h.s. Provide a no concentrated sweet diet and cover with sliding scale. Dictated by... Evita Burt P.A.-C. for Alice Reed/lizzy TD: 02/26/2017 18:23 JOB #: [id number] CONSULTATION REPORT Page 1 of 1 X Evita Burt CONSULTATION REPORT
--- NOTE | ~2017-02-26 | CO ---
Unit #: [id number] #: [id number] Patient: DENNIS MARTINEZ [id number] [place] [address] [id number] I MR#: [id number] NAME: DENNIS MARTINEZ ROOM: [facility] Age: 31 Sex: F Admission Date: 02/26/2017 : 1985 Attending Physician: Dylan Herrera M.D. Primary Care Physician: Primary Care Physician No Consultation Date: 02/27/2017 CONSULTATION REPORT HISTORY OF PRESENT ILLNESS Dennis reports constant vomiting and abdominal pain. She has a history of gastroparesis and had a stimulator placed in May by Dr. Urias. She reports that she has not been able to eat any food in 6 days; however, there are remnants of fruit in her room. She was recently admitted to the ICU at [facility] and treated for DKA. She is currently receiving Levemir 10 units at bedtime and sliding scale insulin per our protocol. Blood sugars this morning have been 259 and 196. She did refuse her Levemir last night. She has no other complaints. PHYSICAL EXAMINATION CARDIAC: Regular rate and rhythm. No murmurs, gallops, or rubs. RESPIRATORY: Clear to auscultation bilaterally. ABDOMEN: Bowel sounds positive in all quadrants. The patient does report abdominal tenderness to palpation. DIAGNOSTIC STUDIES LABORATORY RESULTS: On 02/26/2017; hemoglobin was 10.0, hematocrit 32.5, white blood cells 2.8, and platelets . ASSESSMENT AND PLAN History of gastroparesis with current nausea and vomiting. We will give the patient Phenergan 25 mg IM q.4 hours p.r.n. nausea and vomiting. We will also begin strict I's and O's q.4 hours. Please notify, if urine output is less than 200 mL amount of time. We will repeat CBC, CMP, Mag, and UA q.a.m. Dictated by... Zulma HamptonP.RGrady. for Alice Reed/lizzy TD: 02/27/2017 23:40 JOB #: [id number] Unit #: [id number] #: [id number] Patient: DENNIS MARTINEZ CONSULTATION REPORT Page 1 of 1 X MACIEL PRESSLEY APRN CONSULTATION REPORT
--- NOTE | ~2017-02-26 | PN ---
Unit #: [id number] #: [id number] Patient: DENNIS MARTINEZ [id number] [facility] [address] [place] [address] [id number] I MR#: [id number] NAME: DENNIS MARTINEZ ROOM: [facility] Age: 31 Sex: F Admission Date: 02/26/2017 : 1985 Attending Physician: Dylan Herrera M.D. Admitting Physician: Dylan Herrera M.D. Primary Care Physician: Primary Care Physician Baylee NUNO NOTES DATE 02/27/2017 DISCUSSION This is a 31-year-old female who was seen today and chart was reviewed and case was discussed with the staff. He was anxious, very irritable and very manipulative. She realizes she is not going to get any narcotics. She all of a sudden is not suicidal and actually has been making statements that she never told the ER that she was suicidal and wondered if her old records had been followed for threatening to commit suicide and trying to run into oncoming traffic on the road and security guards having to intervene and stop her and making threats to the doctor that if she does not get narcotics, she is going to kill herself and now she has changed the story all over and appears to be very manipulative and minimally focused and interested in psychiatric treatment and as such that means a poor prognosis. MENTAL STATUS EXAMINATION Young, -Tunis[place] female, who was casually dressed with fair personal hygiene, appears to be in no acute distress or discomfort. She was awake and alert on interaction with intact orientation to time, place, and person. Her mood was anxious and depressed with a congruent affect. His speech was slow and restricted in content. Her thought processes were disorganized with some looseness of associations and suicidal ideations. Her insight and judgment remain significantly impaired. Dictated by... Dylan Herrera M.D. IAA/coy TD: 02/28/2017 09:46 JOB #: [id number] Unit #: [id number] #: [id number] Patient: DENNIS MARTINEZ [facility] PROGRESS NOTES Page 1 of 1 X Javier,Dylan GABRIEL X PROGRESS NOTE
--- NOTE | ~2017-02-26 | CO ---
Unit #: [id number] #: [id number] Patient: DENNIS MARTINEZ [id number] [facility] [address] [place] [address] [id number] I MR#: [id number] NAME: DENNIS MARTINEZ ROOM: [facility] Age: 31 Sex: F Admission Date: 02/26/2017 : 1985 Attending Physician: Dylan Herrera M.D. Primary Care Physician: Primary Care Physician No Consultation Date: 02/28/2017 CONSULTATION REPORT ORDERING PROVIDER Dr. Herrera. REASON FOR CONSULT Dehydration. SUBJECTIVE The patient reports that she has a long history of gastroparesis and she has a stimulator placed. She was recently put on anticoagulation and she believes it is causing her a bleed. The reason she feels this way is because she has been having longer than normal period and nose bleeds on a daily basis. She complains that her last bowel movement was approximately one week ago. She does report that bowel movements are fairly irregular with her gastroparesis, but she does not usually go 1 week. She reports that when she did have a bowel movement one week ago, it was small and hard. She has vomited several times just today. She is not sure if there was any blood in her vomit because she keeps getting red Gatorade. She does report she is unable to keep anything down. She had some Gatorade earlier today and vomited it out. She reports generalized abdominal pain and also bloating. OBJECTIVE The patient's bowel sounds are very diminished. She was tender to palpation in all 4 quadrants. No guarding. Laboratory results were reviewed and the patient noted to have a critical potassium of 2.9. Skin turgor was poor and mucous membranes were dry. A KUB was performed stat and preliminary results show nothing in the gut. ASSESSMENT 1. Abdominal pain. 2. Dehydration. 3. Hypokalemia. 4. Gastroparesis. PLAN Due to the patient's dehydration and critical potassium level, she is to be transported to [facility] for further evaluation. Dictated by... Vernon Sandhu A.P.R.N. Unit #: [id number] #: [id number] Patient: DENNIS MARTINEZ EF/modl TD: 02/28/2017 23:14 JOB #: [id number] CONSULTATION REPORT Page 1 of 1 X VERNON SANDHU APRN CONSULTATION REPORT
--- NOTE | ~2017-02-26 | PN ---
Unit #: [id number] #: [id number] Patient: DENNIS TEJADA [id number] [facility] [address] [place] [address] [id number] MR#: [id number] NAME: DENNIS TEJADA ROOM: [facility] Age: 31 Sex: F Admission Date: 02/26/2017 : 1985 Attending Physician: Dylan Herrera M.D. Admitting Physician: Dylan Herrera M.D. Primary Care Physician: Primary Care Physician Baylee GUERRERO PROGRESS NOTES DATE 02/28/2017 DISCUSSION Ms. Tejada is a 31-year-old white female who was seen today and chart was reviewed and case was discussed with the staff. She has been anxious, withdrawn and rather seclusive to herself. Meanwhile, she has been cooperative with treatment recommendations as she has been taking the medications and tolerating them fairly well. MENTAL STATUS EXAMINATION Young female who was casually dressed with fair personal hygiene, appears to be in no acute distress or discomfort. She was awake and alert with impaired attention and concentration. Her mood was anxious with congruent affect. She denies any suicidal or homicidal ideations. Her insight and judgement remains slightly impaired. TREATMENT PLAN 1. We will continue her on her current treatment protocol. We will monitor her response to the medication and make further adjustments as needed. 2. We will continue to follow up. Dictated by... Alice Kc/freddy TD: 03/01/2017 00:01 JOB #: [id number] Unit #: [id number] #: [id number] Patient: DENNIS TEJADA PROGRESS NOTES Page 1 of 1 X Dylan Herrera MD PROGRESS NOTE
--- NOTE | ~2017-02-26 | HP ---
Unit #: [id number] #: [id number] Patient: DENNIS MARTINEZ [id number] [facility] [address] [place] [address] [id number] I MR#: [id number] NAME: DENNIS MARTINEZ ROOM: [facility] Age: 31 Sex: F Admission Date: 02/26/2017 : 1985 Attending Physician: Dylan Herrera M.D. Admitting Physician: Dylan Herrera M.D. Primary Care Physician: Primary Care Physician No HISTORY AND PHYSICAL NOTE Dennis is a 31-year-old female admitted on 02/26/[address] [place] [address] for depression and suicidal ideation. She was recently admitted to [facility] on 02/25/2017 for DKA where she was treated in the ICU. She was transferred [facility]. I reviewed the history and physical from her admission to [facility], and from her admission to [facility], and there are no changes. There has been a medical consult requested and completed on 02/27/2017. Dictated by... Mauricio Hampton/frantz TD: 02/27/2017 15:05 JOB #: [id number] HISTORY AND PHYSICAL Page 1 of 1 X MACIEL PRESSLEY APRN X HISTORY AND PHYSICAL
[~2017-02-26 08:00] MED LIST: AMITIZA24 MCG PO; ELIQUIS5 MG PO; HUMALOG100 UNIT/2; LEVEMIR SUBQ; PHENERGAN PO; ZOFRAN ODT4 M1 PO
[2017-02-28 12:34] LABS: BASOPHIL% 0.3 % (0-2.5); EOSINOPHIL# 0.1 X10e3 (0-0.7); EOSINOPHIL% 2.1 % (0.0-7.0); HEMATOCRIT 37.8 % (35.0-45.0); HEMOGLOBIN 11.7 gm/dL (12.0-16.0); LYMPHOCYTE# 1.6 X10e3 (1.0-3.5); LYMPHOCYTE% 43.3 % (17.0-45.0); MEAN CELL VOLUME 76.1 FL (83-96); MEAN CORPUSCULAR HEMOGLOBIN 23.6 PG (28-34); MEAN PLATELET VOLUME 8.8 FL (6.5-11.5); MONOCYTE# 0.3 X10e3 (0-1.0); MONOCYTE% 8.9 % (3.0-12.0); NEUTROPHIL# 1.7 X10e3 (1.5-7.1); NEUTROPHIL% 45.4 % (40-75); PLATELET COUNT 293 X10e3 (140-420); RED BLOOD COUNT 4.97 X10e (3.90-5.30); RED CELL DISTRIBUTION WIDTH 16.3 % (11.0-15.5); WHITE BLOOD COUNT 3.7 X10e3 (4.0-10.5)
[2017-02-28 12:36] LABS: DIFF IND NO
[2017-02-28 12:51] LABS: ALBUMIN SERUM 3.7 g/dL (3.5-5.0); BILIRUBIN,TOTAL 0.4 mg/dL (0.2-2.0); CALCIUM SERUM 9.2 mg/dL (8.4-10.2); CREATININE SERUM 0.5 mg/dL (0.6-1.4); GLOM FILT RATE Estimated 148.4 mL/min (>60); MAGNESIUM 1.5 mg/dL (1.6-3.0); PROTEIN TOTAL SERUM 6.4 g/dL (6.0-8.3)
[2017-02-28 12:54] LABS: POTASSIUM 2.9 mmol/L (3.5-5.1)
[2017-02-28 13:00] LABS: URINE APPEARANCE CLEAR; URINE BILIRUBIN NEG (NEG); URINE BLOOD 3+ (NEG); URINE COLOR ORANGE; URINE GLUCOSE 250 MG/DL (NEG); URINE KETONE 3+ (NEG); URINE LEUKOCYTE ESTERASE TRACE (NEG); URINE NITRATE NEG (NEG); URINE PH 6.5 (5-8); URINE PROTEIN 1+ (NEG); URINE SPECIFIC GRAVITY 1.027 (1.003-1.035); URINE UROBILINOGEN 0.2 MG/DL (NEG)
[2017-02-28 13:03] LABS: URINE BACTERIA AUWI 1+ (NEGATIVE); URINE SQUAMOUS EPITHELIAL CELL OCC /[HPF]
[2017-02-28 13:07] LABS: URINE MUCUS PRESENT
== END 2017-02-28 17:48 | disposition short-term general hospital (02) | DRG 885 ==
LOC: P2L 19:32
PROVIDERS: Psychiatry & Neurology Psychiatry
DX: F33.1 Major depressive disorder, recurrent, moderate (principal); K31.84 Gastroparesis; E11.43 Type 2 diabetes mellitus with diabetic autonomic (poly)neuropathy; R45.851 Suicidal ideations; Z88.8 Allergy status to other drugs, medicaments and biological substances; E86.0 Dehydration; E87.6 Hypokalemia
CPT/HCPCS: 74000; 80053; 81003; 82947; 83735; 84703; 85025; J2550